=== PATIENT | male | born 1965 | race Caucasian/White ===

== ENCOUNTER → 2017-03-30 | Outpatient (CLI) | payer BC ==
--- NOTE | 2017-03-30 22:04 | MR ---
EXAMINATION TYPE: MR cervical spine wo con DATE OF EXAM: 03/30/2017 COMPARISON: NONE HISTORY: neck pain with Left arm and finger pain for many years TECHNIQUE: Multiplanar, multisequence images of the cervical spine were acquired. C2-C3: No evidence for degenerative disc disease. No disc bulge/herniation or protrusion. No Canal stenosis. Foramina are patent bilaterally. C3-C4: There is a large right paracentral to right lateral disc herniation with anterior thecal sac c ontact. Correlate with radicular symptoms. No cord contact is evident. Some cord flattening may be pr esent to this level. C4-C5: No evidence for degenerative disc disease. No disc bulge/herniation or protrusion. No Canal stenosis. Foramina are patent bilaterally. C5-C6: No evidence for degenerative disc disease. No disc bulge/herniation or protrusion. No Canal stenosis. Foramina are patent bilaterally. C6-C7: No evidence for degenerative disc disease. No disc bulge/herniation or protrusion. No Canal stenosis. Foramina are patent bilaterally. C7-T1: Mild left paracentral disc bulge is present with anterior thecal sac contact. No spinal canal stenosis is evident. No cord contact is evident. Foramen are patent Cervical segments are intact. There is normal alignment. Cervical spinal cord is of normal signal. Craniovertebral junction relationships are within normal limits. IMPRESSION: 1. Large right paracentral disc herniation C3-4: Right C4 radicular symptoms. 2. Mild left paracentral disc bulging C7-T1
== END ==
LOC: RADMRIMAIN 20:34
PROVIDERS: ATTEND Family Medicine
DX: M50.23 Other cervical disc displacement, cervicothoracic region (principal)
CPT/HCPCS: 72141

== ENCOUNTER → 2017-08-31 | Outpatient (CLI) | payer BC | END | disposition home or self-care (01) | LOC: LABWHC1 08:18 | PROVIDERS: ATTEND Internal Medicine Endocrinology, Diabetes & Metabolism | DX: E03.9 Hypothyroidism, unspecified (principal) | CPT/HCPCS: 36415; 84439; 84443 ==

== ENCOUNTER → 2021-11-12 | Outpatient (CLI) | payer BC ==
--- NOTE | 2021-11-16 13:24 | MR ---
EXAMINATION TYPE: MR cervical spine wo con DATE OF EXAM: 11/12/2021 10:17 AM COMPARISON: EXAMINATION TYPE: MR cervical spine wo con DATE OF EXAM: 11/12/2021 10:17 AM COMPARISON: NONE HISTORY: Cervical disc degeneration, headaches, RUE radic. Multiplanar MultiSpin echo imaging of the cervical spine was performed. Comparison: none C2-C3: No evidence for degenerative disc disease. No disc bulge/herniation or protrusion. No Canal stenosis. Foramina are patent bilaterally. C3-C4: No evidence for degenerative disc disease. No disc bulge/herniation or protrusion. No Canal stenosis. Foramina are patent bilaterally. C4-C5: No evidence for degenerative disc disease. No disc bulge/herniation or protrusion. No Canal stenosis. Foramina are patent bilaterally. C5-C6: No evidence for degenerative disc disease. No disc bulge/herniation or protrusion. No Canal stenosis. Foramina are patent bilaterally. C6-C7: No evidence for degenerative disc disease. No disc bulge/herniation or protrusion. No Canal stenosis. Foramina are patent bilaterally. C7-T1: No evidence for degenerative disc disease. No disc bulge/herniation or protrusion. No Canal stenosis. Foramina are patent bilaterally. Cervical segments are intact. There is normal alignment. Cervical spinal cord is of normal signal. Craniovertebral junction relationships are within normal limits. IMPRESSION: 1. HISTORY: Cervical disc degeneration, headaches, RUE radic. Multiplanar MultiSpin echo imaging of the cervical spine was performed. Comparison: none C2-C3: No evidence for degenerative disc disease. No disc bulge/herniation or protrusion. No Canal stenosis. Foramina are patent bilaterally. C3-C4: No evidence for degenerative disc disease. No disc bulge/herniation or protrusion. No Canal stenosis. Foramina are patent bilaterally. C4-C5: No evidence for degenerative disc disease. No disc bulge/herniation or protrusion. No Canal stenosis. Foramina are patent bilaterally. C5-C6: No evidence for degenerative disc disease. No disc bulge/herniation or protrusion. No Canal stenosis. Foramina are patent bilaterally. C6-C7: Mild degenerative disc disease with posterior disc bulge. No evidence for disc herniation prot rusion or central stenosis. Foramina are patent. C7-T1: No evidence for degenerative disc disease. No disc bulge/herniation or protrusion. No Canal stenosis. Foramina are patent bilaterally. Cervical segments are intact. There is normal alignment. Cervical spinal cord is of normal signal. Craniovertebral junction relationships are within normal limits. IMPRESSION: 1. Mild degenerative disc disease and disc bulging at C6-C7.
== END | disposition home or self-care (01) ==
LOC: RADMRIMAIN 09:34
PROVIDERS: ATTEND Family Medicine
DX: M50.123 Cervical disc disorder at C6-C7 level with radiculopathy (principal)
CPT/HCPCS: 72141

== ENCOUNTER → 2022-01-12 | Outpatient (CLI) | payer BC ==
--- NOTE | 2022-01-12 08:55 | P.PN ---
Subjective Progress Note Date: 01/12/22 Principal diagnosis: A 56 yr old male with a history of severe and chronic neck pain secondary to cervical degenerative disc diseases with facet arthropathy presents today for evaluation status post right TF MULUGETA C6-C7 #1. Patient states he experienced only 10-20% pain relief. Pain level is currently at 4 out of 10 in intensity, dull and achy in the right aspects of his lower cervical spine without radiation of pain. He also admits to sharp, stabbing pain in the right anterior portion of his right shoulder. Pain is provoked by lifting, lateral flexion and rotation of the head. Pain is alleviated with medications, topicals, injections, physical therapy in 2017, weekly chiropractic treatments which he is currently in and rest. Interventional pain procedures completed include R TFESI C6-C7 Patient is currently on Gabapentin QHS Patient denies any side effects of the medication(s), denies excessive drowsiness or sleepiness, denies suicidal ideation and reports that the current pain medication is helping to control the pain and improve activities of daily living. Patient denies any motor or sensory deficits. Patient denies any fever or night sweats, denies any change in the bowel movements or urination. Physical Examination: -Constitutional: Cooperative. Not in acute distress . -HEENT: Neck is supple. No lymphadenopathy. No thyromegaly. Normal thyroid size. Eyes: No ptosis , no icterus, no photophobia. ENT: No auditory deficits. Normal oropharynx. No Thrush. - Respiratory: Chest clear to auscultations bilaterally. No wheezing. No rhonchi. - Cardiovascular: Regular rate and rhythm. S1 / S2 , no S3 , no S4. - Gastrointestinal: Abdomen soft no tenderness. Bowel sounds positive in all four quadrants. No organomegaly. - Genitourinary: Deferred. - Neurologic: Cranial nerve II to XII intact. No focal neurological deficits. - Psychatric: Alert & oriented x 3. Matching mood & appropriate affect. Judgment and insight intact. - Lymphatic: No Lymphadenopathy. - Musculoskeletal: R Shoulder: Tenderness to palpation over the R AC joint line Cervical spine: Muscle bulk/ tone/ strength in the bilateral upper extremities normal. Facet loading test cervical area positive over the R C6-C7, C7-T1 with paraspinal muscle tenderness Lumbar spine: Motor bulk/ tone/ strength lower extremities , thigh and legs : 5/5 Deep tendon reflexes : Normal Knee Jerk. Normal Ankle Jerk . Vertebral body tenderness to palpation over Lumbar Facet Loading Test positive Straight Leg Raise: positive at 30 degrees right side/ left side Gaenslen's Test positive Sacral spine : Severe tenderness over the Sacroiliac joint: right side / left side Range of motion: Flexion of the lumbar spine <60 degrees Range of motion: Extension of the lumbar spine <20 degrees Gaenslen's Test positive Pito test: positive right side / left side Assessment and plan: Chronic neck pain secondary to cervical degenerative disc disease with facet arthropathy without myelopathy Recommendation of facet blocks of the medial branches right C6-C7, C7-T1 #1. Risks, benefits of procedure discussed and patient verbalized understanding. Admits to medical history of diabetes. Protocol for discontinuation/continuation of medications jina procedure discussed. Denies anticoagulants use. MRI without contrast R shoulder ordered re: R shoulder strain All patient questions answered MAPS reviewed and it was appropriate. I have spent 31 minutes on patient care today. Dr Pretty was available by phone for the evaluation of this patient. The time was used to review the medical records including relevant urine studies and Prescription history (MAPs) , review of the available imaging, evaluation and examination of the patient, coordination of care with the medical staff and if applicable referring physicians, as well as creation of the medical record Objective - Vital Signs Vital signs: Intake & Output 01/11/22 01/12/22 01/12/22 18:59 06:59 18:59 Weight 117.934 kg PQRS Measure Charge Sheet Mode of Arrival: Ambulatory - Pain Location Neck Non-Pharmacological Interventions: Home Exercise, Ice, Stretching PQRS Narrative: Smoking Status Former smoker Pain Intensity [Neck] 4 Scale Used Numeric (1 - 10) Hx Alcohol Use (MH) Yes: 14 beers per week Home Medications: Ambulatory Orders Cholecalciferol [Vitamin D3] 5,000 unit PO DAILY 01/27/16 Citalopram Hydrobromide [CeleXA] 40 mg PO DAILY 01/27/16 Levothyroxine Sodium [Synthroid] 200 mcg PO DAILY 01/27/16 Ibuprofen [Motrin] 200 - 400 mg PO Q6HR PRN 05/30/17 Atenolol/Chlorthalidone [Atenolol/Chlorthalidone 50-25] 1 each PO DAILY 01/11/22 metFORMIN HCL 850 mg PO HS 01/11/22 Gabapentin 1 cap PO DAILY 01/12/22 Losartan Potassium [Cozaar] 1 tab PO DAILY 01/12/22
[2022-01-12 11:38] VITALS: BP 154/94; PULSE 63; RESP 16; TEMP 98.3
== END ==
LOC: PNWHC3 07:53
PROVIDERS: ATTEND Specialist
DX: M50.30 Other cervical disc degeneration, unspecified cervical region (principal); M47.812 Spondylosis without myelopathy or radiculopathy, cervical region; G89.29 Other chronic pain; E11.9 Type 2 diabetes mellitus without complications; Z79.4 Long term (current) use of insulin; Z87.891 Personal history of nicotine dependence
CPT/HCPCS: 99211

== ENCOUNTER 2022-02-24 08:06 | Day surgery (SDC) | payer BC ==
[2022-02-23 08:46] VITALS: BMI 36.2
[~2022-02-24 08:06] MED LIST: LACTATED RINGERS 1,000 ML IV SCH; LIDOCAINE 1% (10MG/ML) FOR IV START INTRADERMA PRN
[2022-02-24 08:44] LABS: Glucose,Whole Blood 215 mg/dL (75-99)
[2022-02-24] MEDS ORDERED: INSULIN ASPART (NovoLOG) 100 UNIT/ML VIAL SQ ONE (08:52)
[2022-02-24 08:56] VITALS: TEMP 97.5
[2022-02-24] MEDS ORDERED: fentaNYL (PF) 50 MCG/ML 2 ML AMP ONE (08:57)
[2022-02-24] MEDS ORDERED: MIDAZOLAM 2 MG/2 ML VIAL ONE (08:57)
[2022-02-24] MEDS ORDERED: ROPIVACAINE 5MG/ML 20ML VIAL ONE (08:57)
[2022-02-24] MEDS ORDERED: methylPREDNISolone ACETATE 40 MG/ML 1 ML VIAL ONE (08:57)
--- NOTE | 2022-02-24 09:19 | P.PCN ---
Date of Procedure: 02/24/22 Procedure(s) Performed: PREOPERATIVE DIAGNOSIS: 1-Cervical Spondylosis with Facet Arthropathy.without myelopathy. POSTOPERATIVE DIAGNOSIS: Same as preoperative diagnosis. PROCEDURES: Diagnostic right C6 , C7 ,T1 medial branch blocks, with fluoroscopic guidance (fluoroscopy images available in radiology department ) ( to target the facet joint at right C6-7 ,C7-T1 )# 1st ANESTHESIA: Monitored anesthesia care as per anesthesia department . EBL: Minimal PROCEDURE INDICATION: The patient with neck pain secondary to cervical arthropathy unresponsive to more conservative treatments. PROCEDURE DESCRIPTION / TECHNIQUE: The patient was seen and identified in the preoperative area. Risks, benefits, complications, and alternatives were discussed with the patient, the patient agreed to proceed with the procedure and signed the consent. IV was started. Vital signs remained stable throughout the procedure. Patient was taken to the OR and time out was completed. The patient was placed in the Lateral position on the procedure table.( right side up ) . The cervical area was prepped and draped in the usual sterile fashion. Critical pause was taken. Vital signs were closely monitored during the procedure. Conscious sedation was used during the procedure to decrease patients anxiety. Using cross-table lateral fluoroscopy, the centroid of the trapezoid of right C6, C7 ,T1 was identified, marked, and localized with 1% lidocaine 1 ml at each level for skin and Sub Q infiltrations . Subsequently, a 25 G 3 spinal needle was advanced guided by fluoroscopy to the centroid of the trapezoid of Right C3, C4 , C5, C6 . [place] tip position was confirmed at the centroid of the trapezoids of Right C6 ,C7 ,T1 with anteroposterior fluoroscopy. Subsequently, 2 ml of preservative-free Ropivacaine 0.5% mixed with Depo- Medrol 20 mg and half ml of the mixture was injected after negative aspiration for blood and CSF. [place] was then removed intact COMPLICATIONS: No acute complications. DISPOSITION / PLANS: The patient was placed in a supine position and transferred to the recovery area in a stable condition for observation and was discharged from the recovery room after meeting discharge criteria. Home discharge ins tructions given to the patient by the staff. The patient was reexamined prior to discharge. The patient will schedule a follow up in the clinic in 2-4 weeks.
[2022-02-24] MEDS ORDERED: IV FLUID CONTINUATION 1,000 ML IV ONE (09:22)
[2022-02-24 09:24] VITALS: RESP 16
[2022-02-24 09:35] LABS: Glucose,Whole Blood 180 mg/dL (75-99)
[2022-02-24 09:36] VITALS: BP 147/93; PULSE 60
--- NOTE | 2022-02-24 09:40 | FL ---
EXAMINATION TYPE: FL guided pain mgmt statistic DATE OF EXAM: 02/24/2022 HISTORY: Fluoroscopy time 22 seconds of fluoroscopy provided. IMPRESSION: 1. Fluoroscopy time.
== END 2022-02-24 09:50 | disposition home or self-care (01) ==
LOC: ORPAIN 08:06
PROVIDERS: ATTEND Specialist
DX: M47.812 Spondylosis without myelopathy or radiculopathy, cervical region (principal)
CPT/HCPCS: 64490; 64491; J2250; J1030; J3010; J2795

== ENCOUNTER → 2022-03-09 | Outpatient (CLI) | payer BC ==
[2022-03-09 09:52] VITALS: BP 184/108; PULSE 60; RESP 16; TEMP 97.4
--- NOTE | 2022-03-09 09:55 | P.PN ---
Subjective Progress Note Date: 03/09/22 Principal diagnosis: A 56 yr old male with a history of severe and chronic neck pain secondary to degenerative disc diseases with facet arthropathy presents today for evaluation s/p R facet block of the medial branches C6-C7, C7-T1 #1. He states he expressed 80% pain relief for 4 hours status post procedure. Pain level is currently at 4 out of 10 in intensity, sharp, achy in the right aspects of his lower cervical spine with radiation of pain to the right upper extremity. Pain escalates as high as 8 out of 10 intensity when his medications wear off . Pain is provoked by extension and overhead reaching. Pain is alleviated with occasions progresses ibuprofen, tramadol), topicals, injections, ice, heat, chiropractic treatments monthly with his last visit in December 2021, reclining and rest. He stated he is having a cervical diskectomy on 03/28/[address] Larry and states Dr Larry is aware he is going through a series of facet blocks leading to ablation and to continue going forward. We will request records from Dr Larry from [facility]. Interventional pain procedures completed include R FB/MB C6-C7, C7-T1 #1 Patient is currently on Ibuprofen, Tramadol. Patient denies any side effects of the medication(s), denies excessive drowsiness or sleepiness, denies suicidal ideation and reports that the current pain medication is helping to control the pain and improve activities of daily living. Patient denies any motor or sensory deficits. Patient denies any fever or night sweats, denies any change in the bowel movements or urination. Physical Examination: -Constitutional: Cooperative. Not in acute distress . -HEENT: Neck is supple. No lymphadenopathy. No thyromegaly. Normal thyroid size. Eyes: No ptosis , no icterus, no photophobia. ENT: No auditory deficits. Normal oropharynx. No Thrush. - Respiratory: Chest clear to auscultations bilaterally. No wheezing. No rhonchi. - Cardiovascular: Regular rate and rhythm. S1 / S2 , no S3 , no S4. - Gastrointestinal: Abdomen soft no tenderness. Bowel sounds positive in all four quadrants. No organomegaly. - Genitourinary: Deferred. - Neurologic: Cranial nerve II to XII intact. No focal neurological deficits. - Psychatric: Alert & oriented x 3. Matching mood & appropriate affect. Judgment and insight intact. - Lymphatic: No Lymphadenopathy. - Musculoskeletal: Cervical spine: Muscle bulk/ tone/ strength in the bilateral upper extremities normal Vertebral body tenderness to palpation over Facet loading test positive over R C6-C7, C7-T1 with jump reflex Thoracic spine Muscle bulk / tone/ strength in the bilateral paraspinal muscles normal Vertebral body tender to palpation over Facet loading test positive Lumbar spine: Motor bulk/ tone/ strength lower extremities , thigh and legs : 5/5 Deep tendon reflexes : Normal Knee Jerk. Normal Ankle Jerk . Vertebral body tenderness to palpation over Lumbar Facet Loading Test positive Straight Leg Raise: positive at 30 degrees right side/ left side Gaenslen's Test positive Sacral spine : Severe tenderness over the Sacroiliac joint: right side / left side Range of motion: Flexion of the lumbar spine <60 degrees Range of motion: Extension of the lumbar spine <20 degrees Gaenslen's Test positive Flavio's Test positive Pito test: positive right side / left side Thigh Thrust Test Sacral Thrust Test Assessment and plan: Chronic neck pain secondary to cervical degenerative disc disease , spondylosis with facet arthropathy without myelopathy Recommendation of R C6-C7, C7-T1 facet block of the medial branches #2. It will be scheduled at a later date as to not interfere with his appointments with Dr Larry at [facility]. Will retrieve records. Risks, benefits of procedure discussed and pt verbalized understanding. Denies anticoagulant use . Admits to medical history of diabetes. Protocol for discontinuation/ continuation of medications jina procedure discussed. Chronic and current use of high-risk medication (Opioids). The patient was counseled about risk of opioid use, psychological risk associated with opioids and was orally counseled to not overuse , divert or sell medications. Pt is to store medication in a safe location. The patient is counseled against driving while using narcotic medications and also not to use alcohol or any illicit recreational drugs. Patient verbalized understanding that the lack of compliance will result in failure to renew narcotic prescription(s) as well as possible discharge from the clinic Diagnoses, prognosis and treatment options including but not limited to physical therapy, surgical interventions, interventional therapies and medication management including narcotics and adjuvant medication were discussed. All patient questions answered MAPS reviewed and it was appropriate. I have spent 31 minutes on patient care today. Dr rPetty was available by phone for the evaluation of this patient. The time was used to review the medical records including relevant urine studies and Prescription history (MAPs), review of the available imaging, evaluation and examination of the patient, coordination of care with the medical staff and if applicable referring physicians, as well as creation of the medical record PQRS Measure Charge Sheet Mode of Arrival: Ambulatory PQRS Narrative: Smoking Status Former smoker Blood Pressure 184/108 Pain Intensity [Right Lower 4 Neck] Scale Used Numeric (1 - 10) Hx Alcohol Use (MH) Yes: 14 beers per week Home Medications: Ambulatory Orders Cholecalciferol [Vitamin D3] 5,000 unit PO DAILY 01/27/16 Citalopram Hydrobromide [CeleXA] 40 mg PO DAILY 01/27/16 Levothyroxine Sodium [Synthroid] 200 mcg PO DAILY 01/27/16 Ibuprofen [Motrin] 200 - 400 mg PO Q6HR PRN 05/30/17 Atenolol/Chlorthalidone [Atenolol/Chlorthalidone 50-25] 1 each PO DAILY 01/11/22 metFORMIN HCL 850 mg PO HS 01/11/22 Gabapentin 1 cap PO DAILY 01/12/22 Losartan Potassium [Cozaar] 1 tab PO DAILY 01/12/22
== END ==
LOC: PNWHC3 08:53
PROVIDERS: ATTEND Specialist
DX: M50.30 Other cervical disc degeneration, unspecified cervical region (principal); M47.812 Spondylosis without myelopathy or radiculopathy, cervical region; G89.29 Other chronic pain; Z79.891 Long term (current) use of opiate analgesic; Z87.891 Personal history of nicotine dependence; E11.9 Type 2 diabetes mellitus without complications; Z79.84 Long term (current) use of oral hypoglycemic drugs
CPT/HCPCS: 99211

== ENCOUNTER → 2023-08-16 | Outpatient (CLI) | payer BC ==
--- NOTE | 2023-08-21 22:04 | MR ---
EXAMINATION TYPE: MR elbow RT wo con DATE OF EXAM: 08/16/2023 COMPARISON: No radiographic correlation available. HISTORY: 58-year-old male M25.521, Right elbow pain TECHNIQUE: Multiplanar, multisequence images of the right elbow were obtained without IV contrast. FINDINGS: The distal biceps tendon is intact but mildly thickened with some intermediate signal and some adjace nt soft tissue swelling. No abnormal bursal effusion is seen. The triceps insertion. There appears to be severe cartilage loss along the radial articular surface and moderate irregular c artilage loss along the distal capitellar articular cartilage. Common extensor tendon origin shows some inhomogeneous signal but is otherwise intact. Underlying lat eral collateral ligament complex appears to be intact. The common flexor tendon origin pronator mass as well as the UCL appear to be intact. There is a small, probable physiologic joint effusion. The brachial neurovascular bundle as well as the ulnar nerve appear normal. No acute or healing fractures suspicious bone marrow placement. IMPRESSION: 1. Mild insertional distal biceps tendinosis. 2. Mild tendinosis at the common extensor tendon origin. 3. Osteoarthritic change with moderate to severe cartilage loss within the radiocapitellar joint.
== END | disposition home or self-care (01) ==
LOC: RADMRIMAIN 16:10
PROVIDERS: ATTEND Family Medicine
DX: M19.021 Primary osteoarthritis, right elbow (principal); M67.823 Other specified disorders of tendon, right elbow

== ENCOUNTER 2023-10-24 05:49 | Day surgery (SDC) | payer BC ==
--- NOTE | 2023-10-23 21:44 | HP ---
HISTORY AND PHYSICAL DATE OF SURGERY: 10/24/2023. HISTORY OF PRESENT ILLNESS: Flavio Taylor is a 58-year-old patient seen with progressive right shoulder pain. After treatment options were discussed, the patient elected to proceed with right shoulder arthroscopy. Consent was obtained. Medical clearance was provided by Dr. Reji Ely. PAST MEDICAL HISTORY: Hypertension, hypothyroidism, and insulin-dependent diabetes. PAST SURGICAL HISTORY: Cervical fusion. DAILY MEDICATIONS: 1. Atenolol. 2. Celexa. 3. Levothyroxine. 4. Metformin. ALLERGIES: None. SOCIAL HISTORY: Denies tobacco use. PHYSICAL EVALUATION OF THE RIGHT SHOULDER: Flexion is 90 degrees, abduction is 60 degrees. External rotation is 0 degrees with weakness. He is tender along the anterolateral acromion and rotator cuff insertion site. Impingement is positive at 60 degrees. Cross-body adduction sign is positive. Drop-arm sign is positive. Distal neurovascular exam is intact. IMAGING STUDIES: Radiographs of the right shoulder revealed a type 2 acromion evidence for acromioclavicular joint osteoarthritis. Right shoulder MRI revealed rotator cuff tear and adhesive capsulitis. IMPRESSION: 1. Right shoulder impingement with rotator cuff tear. 2. Right shoulder acromioclavicular joint osteoarthritis. 3. Right shoulder adhesive capsulitis. 4. Hypertension. 5. Noninsulin dependent diabetes. PLAN: Right shoulder arthroscopy with subacromial decompression, arthroscopic rotator cuff repair, Diogenes, and lysis of adhesions. MMODL / IJN: [id number] /
[~2023-10-24 05:49] MED LIST changes: -LACTATED RINGERS 1,000 ML IV SCH; -LIDOCAINE 1% (10MG/ML) FOR IV START INTRADERMA PRN; +ceFAZolin 3 GM in SODIUM CHLORIDE 0.9% 100 ML IVPB PRN
[2023-10-24] MEDS ORDERED: LACTATED RINGERS 1,000 ML IV SCH (06:08)
[2023-10-24] MEDS ORDERED: droPERidol 5 MG/2 ML VIAL IVP ONE (06:08)
[2023-10-24] MEDS ORDERED: LIDOCAINE 1% (10MG/ML) FOR IV START INTRADERMA PRN (06:08)
[2023-10-24] MEDS ORDERED: ONDANSETRON 4 MG/2 ML VIAL IVP ONE (06:08)
[2023-10-24] MEDS ORDERED: ONDANSETRON 4 MG/2 ML VIAL ONE (06:14)
[2023-10-24 06:46] LABS: Glucose,Whole Blood 161 mg/dL (70-110)
[2023-10-24] MEDS ORDERED: MIDAZOLAM 2 MG/2 ML VIAL IVP ONE (06:51)
[2023-10-24] MEDS ORDERED: HYDROmorphone 0.5 MG/0.5 ML SYRINGE IVP PRN (07:00)
[2023-10-24] MEDS ORDERED: KETOROLAC 15 MG/ML 1 ML VIAL ONE (07:25)
[2023-10-24] MEDS ORDERED: ROPIVACAINE 5 MG/ML 30 ML VIAL ONE (07:25)
[2023-10-24] MEDS ORDERED: PROPOFOL 10 MG/ML 20 ML VIAL IV ONE (07:25)
[2023-10-24] MEDS ORDERED: DEXAMETHASONE SOD PHOSPHATE 4 MG/ML 1 ML VIAL ONE (07:25)
[2023-10-24] MEDS ORDERED: NEOSTIGMINE 1 MG/ML 10 ML VIAL ONE (07:25)
[2023-10-24] MEDS ORDERED: GLYCOPYRROLATE 0.2 MG/ML 2 ML VIAL ONE (07:25)
[2023-10-24] MEDS ORDERED: LIDOCAINE 1% INJ 10MG/ML (20 ML MDV) ONE (07:25)
[2023-10-24] MEDS ORDERED: ROCURONIUM 10 MG/ML (5 ML VIAL) IV ONE (07:25)
[2023-10-24] MEDS ORDERED: fentaNYL (PF) 50 MCG/ML 2 ML AMP ONE (07:25)
[2023-10-24] MEDS ORDERED: SUCCINYLCHOLINE CHLORIDE 200 MG/10 ML VIAL IV ONE (07:25)
[2023-10-24] MEDS ORDERED: ePHEDrine 50 MG/ML 1 ML VIAL ONE (07:25)
[2023-10-24 09:16] LABS: Glucose,Whole Blood 178 mg/dL (70-110)
--- NOTE | 2023-10-24 09:17 | P.OP ---
Date of Procedure: 10/24/23 Preoperative Diagnosis: Right shoulder impingement Postoperative Diagnosis: 1. Right shoulder rotator cuff tear 2. Right shoulder impingement 3. Right shoulder acromioclavicular joint osteoarthritis 4. Right shoulder superficial labral tear Procedure(s) Performed: 1. Right shoulder arthroscopic rotator cuff repair 2. Right shoulder arthroscopic subacromial decompression 3. Right shoulder arthroscopic Diogenes procedure 4. Right shoulder arthroscopic debridement labral tear Implants: 15.5 Arthrex swivel lock anchor Anesthesia: GETA, regional (Interscalene block) Surgeon: Jae Jimenez [employer] #1: Estrada Mistry Estimated Blood Loss (ml): 10 Pathology: none sent Condition: stable Disposition: PACU Indications for Procedure: 58-year-old patient seen with progressive right shoulder pain. After having anthony atment options discussed, he elected to proceed with arthroscopy. Operative Findings: See description of procedure Description of Procedure: Patient underwent an interscalene block by department of anesthesia. The patient was then taken to the operative suite. The patient underwent a general anesthetic by the department of anesthesia. The patient was placed into a lateral position and secured. There was appropriate padding of the bony prominence. Right shoulder was then prepped and draped in normal sterile orthopedic fashion. We placed the extremity in 10 pounds of longitudinal traction. A posterior incision was now made for a posterior working portal site. The trocar and cannula were inserted into the glenohumeral joint. Arthroscopy was initiated. Spinal needle was now inserted anteriorly, to ascertain the anterior working portal site. An incision was now made in that area, a trocar was inserted followed by a probe. There was some superficial tearing of the superior labrum. There was mild hyperemia long head biceps tendon. There was grade 1 chondromalacia throughout the glenohumeral joint. I debrided out the superficial labral tears getting down to stable labral tissue. The residual labrum was stable. Instruments now removed from the glenohumeral joint. Utilizing the posterior working portal site, the trocar and cannula were inserted into the subacromial space. Arthroscopy initiated. I made an incision 2 fingerbreadths lateral to the acromion. I introduced my trocar followed by my ArthroCare ablator. I now began ablating thick subacromial bursal tissue, which exposed the undersurface of the anterior acromion. There was diminished subacromial space. There was a very prominent anterior acromion. A motorized bur was introduced and a subacromial decompression was performed. I also excised some osteophytes off the inferior aspect of the distal clavicle. The AC joint was visualized and noted to be fairly arthritic. The motorized bur was introduced in the anterior portal site and a Diogenes procedure was performed without difficulty, decompressing the AC joint nicely. I turned my attention to the rotator cuff. There was significant tearing along the distal supraspinatus tendon. Upon probing area noted a full-thickness perforation. I debrided the margins getting down to stable tendon tissue. I abraded the footprint with a motorized bur. With the assistance of Justin BULLARD past 3 everted mattress sutures through good bites of rotator cuff tendon. I now punched hole in the footprint area for insertion of an anchor. All 6 limbs of suture were passed through the eyelet of an Arthrex 5.5 swivel lock anchor. I placed the eyelet into our pre-punched hole. I held it in position while Justin BULLARD tensioned all 6 limbs of suture and deployed the anchor with good fixation noted. All residual suture limbs were now clipped. We had good compression of the tendon along the entire footprint. Instruments now removed from the portal sites. All portal sites were approximated with nylon suture. Sterile dressings were applied followed by a shoulder sling. Estrada BULLARD assisted in all aspects of this case. The patient was awakened, transferred to a bed, and taken to recovery in stable condition.
[2023-10-24 09:31] VITALS: TEMP 98.4
[2023-10-24 09:54] VITALS: RESP 14
[2023-10-24] MEDS ORDERED: HYDROcodone/APAP 7.5-325MG 1 EACH TAB ONE (10:36)
[2023-10-24 11:05] VITALS: BP 128/76; PULSE 76
--- NOTE | 2023-10-25 20:37 | P.ANPRN ---
Procedure Note - Anesthesia - Nerve Block Performed Right Interscalene Single Time Out Performed: Yes Date of Procedure: 10/24/22 Procedure Start Time: 06:50 Procedure Stop Time: 06:51 Location of Patient: PreOp Indication: Acute Post-Operative Pain, Requested by Surgeon Sedation Type: Sedate with meaningful contact maintained Preparation: Sterile Prep Position: Supine Needle Types: Pajunk Needle Gauge: 21 Ultrasound used to visualize needle placement: Yes Ultrasound used to observe medication spread: Yes Blood Aspirated: No Pain Paresthesia on Injection Noted: No Resistance on Injection: Normal Image Stored and Saved: Yes Events: Uneventful and Well Tolerated (Ropivacaine 0.5% plus dexamethasone 4 mg)
== END 2023-10-24 11:59 | disposition home or self-care (01) ==
LOC: OR 05:49
PROVIDERS: ATTEND Orthopaedic Surgery
DX: S46.011A Strain of muscle(s) and tendon(s) of the rotator cuff of right shoulder, initial encounter (principal); M19.011 Primary osteoarthritis, right shoulder; M75.41 Impingement syndrome of right shoulder; E03.9 Hypothyroidism, unspecified; E11.9 Type 2 diabetes mellitus without complications; I10 Essential (primary) hypertension; M25.811 Other specified joint disorders, right shoulder; M75.01 Adhesive capsulitis of right shoulder; Z79.4 Long term (current) use of insulin; Z79.84 Long term (current) use of oral hypoglycemic drugs; Z79.899 Other long term (current) drug therapy; X58.XXXA Exposure to other specified factors, initial encounter
CPT/HCPCS: 29824; 29826; 29827; 64415; C1713 ×2; J2250; J0330; J1100; J2710; J0690; J2405; J2001; J3010; J2795; J1885; J2704

== ENCOUNTER 2024-05-05 08:06 | Day surgery (SDC) | payer BC ==
[2024-04-30 15:43] VITALS: BMI 36.2
--- NOTE | 2024-05-05 06:37 | HP ---
HISTORY AND PHYSICAL ANTICIPATED DATE OF SURGERY: 05/05/2024. HISTORY OF PRESENT ILLNESS: Flavio Taylor is a 59-year-old gentleman, seen with persistent right shoulder, adhesive capsulitis with previous history of shoulder arthroscopy. He had failed reasonable conservative treatment measures. He elected to proceed with manipulation under anesthesia, right shoulder steroid injection. Consents obtained. PAST MEDICAL HISTORY: Hypothyroidism, [id number] diabetes. PAST SURGICAL HISTORY: Shoulder arthroscopy, cervical fusion. MEDICATIONS: Atenolol, levothyroxine, metformin, ibuprofen. ALLERGIES: None. SOCIAL HISTORY: Denies tobacco use. PHYSICAL EVALUATION OF THE RIGHT SHOULDER: He has well-healed arthroscopic portal sites. Flexion is 140 degrees. Abduction is 140 degrees. External rotation is 30 degrees with good strength. His distal neurovascular exam is intact. RADIOGRAPHS: Of right shoulder reveals a conversion to a flat anterior acromion. IMPRESSION: 1. Right shoulder adhesive capsulitis. History of previous right shoulder arthroscopy. 2. Hypertension. 3. [id number] diabetes. PLAN: Manipulation under anesthesia, right shoulder with steroid injection. MMODL / IJN: [id number] /
[~2024-05-05 08:06] MED LIST changes: +DEXAMETHASONE SOD PHOSPHATE 4 MG/ML 1 ML VIAL IV ONE; +LIDOCAINE 1% (10MG/ML) FOR IV START INTRADERMA PRN; -ceFAZolin 3 GM in SODIUM CHLORIDE 0.9% 100 ML IVPB PRN; +droPERidol 5 MG/2 ML VIAL IVP ONE
[2024-05-05 08:34] VITALS: RESP 16
[2024-05-05] MEDS: LIDOCAINE 1% (10MG/ML) FOR IV START INTRADERMA ONE (08:34)
[2024-05-05] MEDS: IV FLUID CONTINUATION 1,000 ML IV ONE (08:34)
[2024-05-05] MEDS: LACTATED RINGERS 1,000 ML IV SCH (08:34)
[2024-05-05] MEDS: ONDANSETRON 4 MG/2 ML VIAL IVP ONE (08:47)
[2024-05-05] MEDS: INSULIN ASPART (NovoLOG) 100 UNIT/ML VIAL SQ ONE (08:50)
[2024-05-05 09:03] LABS: Glucose,Whole Blood 232 mg/dL (70-110)
[2024-05-05] MEDS ORDERED: fentaNYL (PF) 50 MCG/ML 2 ML AMP ONE (09:03)
[2024-05-05] MEDS: KETOROLAC 15 MG/ML 1 ML VIAL IVP STA (09:03)
[2024-05-05] MEDS ORDERED: PROPOFOL 10 MG/ML 20 ML VIAL IV ONE (09:03)
[2024-05-05] MEDS ORDERED: MIDAZOLAM 2 MG/2 ML VIAL ONE (09:03)
[2024-05-05] MEDS: BUPIVACAINE (PF) 0.25% 30 ML VIAL INTRAARTIC ONE (09:10)
[2024-05-05] MEDS: methylPREDNISolone ACETATE 80 MG/ML 1 ML VIAL INTRAARTIC STA (09:10)
--- NOTE | 2024-05-05 09:14 | P.OP ---
Date of Procedure: 05/05/24 Preoperative Diagnosis: Right shoulder adhesive capsulitis Postoperative Diagnosis: Right shoulder adhesive capsulitis Procedure(s) Performed: Manipulation under anesthesia right shoulder with steroid injection Anesthesia: MAC Surgeon: Jae Jimenez Estimated Blood Loss (ml): 0 Pathology: none sent Condition: stable Disposition: PACU Indications for Procedure: 59-year-old patient seen with persistent right shoulder adhesive capsulitis. After having treatment options discussed, he elected to proceed with manipulation under anesthesia right shoulder with steroid injection. Operative Findings: See description of procedure Description of Procedure: Patient was taken to a monitored anesthesia area. He underwent IV sedation by the department of anesthesia. Once sufficient anesthesia was noted I performed a manipulation of the right shoulder achieving near full range of motion with audible tearing of the adhesions. The anterior aspect of the right shoulder was now prepped and draped in the normal sterile orthopedic fashion. I injected a solution of 1 cc Depo-Medrol and 2 cc quarter percent plain Marcaine intra- articular under sterile technique. I applied a sterile Band-Aid. I took the shoulder through range of motion. The patient was now awakened having tolerated procedure well.
[2024-05-05 09:24] VITALS: TEMP 98.1
[2024-05-05] MEDS: HYDROmorphone 0.5 MG/0.5 ML SYRINGE IVP PRN (09:31)
[2024-05-05] MEDS: HYDROcodone/APAP 7.5-325MG 1 EACH TAB PO ONE (10:17)
[2024-05-05 10:31] VITALS: BP 123/59; PULSE 50
== END 2024-05-05 10:52 | disposition home or self-care (01) ==
LOC: OR 08:06
PROVIDERS: ATTEND Orthopaedic Surgery
DX: E11.9 Type 2 diabetes mellitus without complications (principal); E03.9 Hypothyroidism, unspecified; I10 Essential (primary) hypertension; F41.9 Anxiety disorder, unspecified; Z79.890 Hormone replacement therapy; Z79.899 Other long term (current) drug therapy; Z79.84 Long term (current) use of oral hypoglycemic drugs; Z79.1 Long term (current) use of non-steroidal anti-inflammatories (NSAID)
CPT/HCPCS: 23700; J2250; J2405; J3010; J1885; J2704; J1170; J0665; J1010